=== PATIENT | male | born 2005 | race American Indian/Alaskan Native ===

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

== ENCOUNTER 2024-01-01 14:26 | Emergency (ER) | payer OTHER ==
[~2024-01-01] VITALS: Ht 175.3 cm; Wt 54.4 kg
[2024-01-01 14:34] VITALS: BP 125/63
[2024-01-01 15:30] LABS: BASOPHILS ABSOLUTE AUTO 0.03 K/mm3 (0.00-0.23); BASOPHILS PERCENT AUTO 1 % (0-2); EOSINOPHILS ABSOLUTE AUTO 0.05 K/mm3 (0.00-0.68); EOSINOPHILS PERCENT AUTO 1 % (0-6); Hematocrit 44.6 % (37.0-53.0); Hemoglobin 15.2 g/dL (13.5-17.5); IMMATURE GRAN ABSOLUTE AUTO 0.01 K/mm3 (0.00-0.10); IMMATURE GRAN PERCENT AUTO 0 % (0-1); LYMPHOCYTES ABSOLUTE AUTO 1.78 K/mm3 (0.84-5.20); LYMPHOCYTES PERCENT AUTO 27 % (21-46); MONOCYTES ABSOLUTE AUTO 0.39 K/mm3 (0.16-1.47); MONOCYTES PERCENT AUTO 6 % (4-13); Mean Corpuscular HGB 30.5 pg (26.0-34.0); Mean Corpuscular HGB Conc 34.1 g/dL (31.5-36.5); Mean Corpuscular Volume 89 fL (80-100); Mean Platelet Volume 10.3 fL (9.1-12.4); NEUTROPHILS ABSOLUTE AUTO 4.32 K/mm3 (1.96-9.15); NEUTROPHILS PERCENT AUTO 66 % (41-73); Platelet Count 227 K/mm3 (150-400); RDW Coefficient Variation 11.8 % (11.7-14.2); RDW Standard Deviation 38.2 fL (35.1-46.3); Red Blood Cell Count 4.99 M/mm3 (4.30-5.90); White Blood Cell Count 6.58 K/mm3 (4.00-11.30)
[2024-01-01 15:54] LABS: Albumin, Blood 4.2 g/dL (3.4-5.0); Albumin/Globulin Ratio 1.4 (0.8-1.8); Bilirubin, Total 0.6 mg/dL (0.1-1.0); Bun/Creatinine Ratio 19.4 (12.0-20.0); Calcium, Blood 9.2 mg/dL (8.5-10.1); Creatinine, Blood 0.83 mg/dL (0.60-1.20); Globulin, Blood 3.1 g/dL (2.2-4.0); Potassium, Blood 3.7 mmol/L (3.5-5.5); Total Protein, Blood 7.3 g/dL (6.4-8.2)
[2024-01-01] MEDS ORDERED: ONDA4ODT MM (17:51)
[2024-01-01] MEDS ORDERED: Pepcid40 MG PO (17:51)
== END 2024-01-01 18:02 | disposition home or self-care (01) ==
LOC: ER 14:26
PROVIDERS: Physician Assistant
DX: K29.70 Gastritis, unspecified, without bleeding (principal)
CPT/HCPCS: 71046; 80053; 83690; 85025; 93005; 93010; 99285-25

== ENCOUNTER 2024-04-17 16:30 | Emergency (ER) | payer OTHER ==
[~2024-04-17] VITALS: Ht 175.3 cm; Wt 59.0 kg
[~2024-04-17 16:30] MED LIST changes: +ONDA4ODT MM; +Pepcid40 MG PO
[2024-04-17 16:37] VITALS: BP 127/75
== END 2024-04-17 17:33 | disposition home or self-care (01) ==
LOC: ER 16:30
DX: K64.8 Other hemorrhoids (principal)
CPT/HCPCS: 99282

== ENCOUNTER 2024-05-11 18:56 | Emergency (ER) | payer OTHER ==
[~2024-05-11] VITALS: Ht 172.7 cm; Wt 54.4 kg
[2024-05-11 19:17] VITALS: BP 139/85
[2024-05-11] MEDS ORDERED: BISA5EC PO (21:32)
[2024-05-11] MEDS ORDERED: MIRALAX17 GM PO (21:32)
[2024-05-11] MEDS ORDERED: DEBROX KIDS EAR30 ML BOTHEARS (21:32)
[2024-05-11] MEDS ORDERED: MINERAL OIL133 M1 PR (21:32)
== END 2024-05-11 21:38 | disposition home or self-care (01) ==
LOC: ER 18:56
DX: K59.00 Constipation, unspecified (principal); H61.23 Impacted cerumen, bilateral
CPT/HCPCS: 99282

== ENCOUNTER 2024-09-02 20:02 | Emergency (ER) | payer OTHER ==
[~2024-09-02] VITALS: Ht 175.3 cm; Wt 56.7 kg
[~2024-09-02 20:02] MED LIST changes: +BISA5EC PO; +DEBROX KIDS EAR30 ML BOTHEARS; +MINERAL OIL133 M1 PR; +MIRALAX17 GM PO
[2024-09-02 20:27] VITALS: BP 137/91
[2024-09-02] MEDS ORDERED: ALEVAZOL56.7 G1 TOP (20:38)
[2024-09-02] MEDS ORDERED: CEPH500 PO (20:38)
[2024-09-02] MEDS ORDERED: Diflucan150 MG PO (20:38)
== END 2024-09-02 20:33 | disposition home or self-care (01) ==
LOC: ER 20:02
DX: L03.116 Cellulitis of left lower limb (principal); L03.115 Cellulitis of right lower limb; B35.3 Tinea pedis; Z79.899 Other long term (current) drug therapy
CPT/HCPCS: 99283